=== PATIENT | female | born 1995 | race Two or more races ===

== ENCOUNTER 2024-02-22 10:27 | Emergency (ER) | payer OTHER ==
[~2024-02-22] VITALS: Ht 170.2 cm; Wt 86.2 kg
[2024-02-22] MEDS ORDERED: CEFTRIAXONE SODIUM 1,000 MG VIAL IM STA (11:22)
[2024-02-22] MEDS ORDERED: KETOROLAC TROMETHAMINE 30 MG VIAL IM STA (11:22)
== END 2024-02-22 12:19 | disposition home or self-care (01) ==
LOC: ER 10:28
DX: J03.80 Acute tonsillitis due to other specified organisms (principal); B96.89 Other specified bacterial agents as the cause of diseases classified elsewhere; Z88.8 Allergy status to other drugs, medicaments and biological substances